=== PATIENT | male | born 1975 | race Caucasian/White ===

== ENCOUNTER 2021-03-29 19:38 | Emergency (ER) | payer SELFPAY ==
[2021-03-29 19:39] VITALS: BP 144/92; PULSE 92; RESP 16; TEMP 36.8; O2SAT 96; BMI 20.2
--- NOTE | 2021-03-29 20:47 | EX.ED.SAOD ---
HPI History of Present Illness Chief Complaint: Mental Health Narrative Narrative: Patient presenting for hallucinations. States that he sees and hears things when he has high on methamphetamine. He states he is on methamphetamine for a long time. He admits to snorting and injecting this. He also admits to some Percocet use as well periodically. He smokes a lot of marijuana. Patient states that lays on methamphetamine he does not have hallucination problems however he does feel as if he sometimes is suicidal. He admits to in the past holding a gun to his head although this was distantly. Last night he stated he wanted to jump in front of a car. He has no current plan to hurt himself. He is requesting help. Patient does admit to doing methamphetamine prior to arrival [facility] Medical History Depression Substance abuse Home Medications No Known/Unobtainable [No Known Home Medications] 11/27/13 [History Last Taken Unknown] Allergy/AdvReac Type Severity Reaction Status Date / Time hydrocodone AdvReac Hives Verified 03/29/21 19:44 Social History Smoking Status: Current every day smoker tobacco type: cigarettes ROS ROS ED Constitutional Constitutional ED: Denies chills or fever(s) Eyes Eyes: Denies blurry vision or diplopia ENT ENT ED: Denies rhinorrhea or sore throat Cardiovascular Cardiovascular: Denies chest pain or palpitations Respiratory/Chest Respiratory/Chest: Denies cough or dyspnea Gastrointestinal Gastrointestinal: Denies abdominal pain, nausea or vomiting Genitourinary Genitourinary ED: Denies dysuria or urinary frequency Musculoskeletal Musculoskeletal: Denies arthralgias or myalgias Integumentary Denies Abrasions or rash Neurologic Neurologic: Denies headache(s) or paresthesias Psychiatric Psychiatric: Reports depression, suicidal ideation and suicidal thoughts EXAM Physical Exam Const Vital Signs: 03/29/21 19:39 Temperature 98.3 F Temperature Source Temporal Pulse Rate 92 Respiratory Rate 16 Blood Pressure 144/92 H Blood Pressure Mean 109 Pulse Ox 96 Oxygen Delivery Method Room Air Positive well nourished General Appearance ED: NAD HEENT Reports moist mucous membranes atraumatic Eyes PERRL and EOMs intact bilaterally General Eye ED: Negative for pale conjunctiva or scleral icterus Chest Wall inspection of chest normal and palpation of chest normal Resp normal respiratory effort and clear to auscultation bilaterally Cardio regular rate and regular rhythm Neuro oriented x3 and CN's II-XII intact bilaterally Sensorium / Orientation: alert Skin Lesions: no lesions Rashes: no rashes MDM MDM MDM Narrative Medical decision making narrative: Patient presenting with methamphetamine use as well as suicidal ideation. He does state that he previously held a gun to his head distantly and also states that last night he tried to jump out in front of a car. Given the fact that he has a plan I did think he needed to be pink slipped. I did obtain lab work which is all within normal limits. EtOH is negative. Urine drug screen is pending. Crisis did come evaluate the patient and they think he will need to be admitted given his symptoms. He is somewhat amenable to this and feels like he needs help. Patient was pink slipped.. Patient will be admitted when a bed becomes available. Impression: 1. Suicidal ideation 2. History of methamphetamine Lab Data Labs: Laboratory Results - last 24 hr 03/29/21 03/29/21 03/29/21 21:15 21:15 21:15 WBC 8.1 RBC 5.17 Hgb 14.9 Hct 46.6 MCV 90.1 MCH 28.8 MCHC 32.0 RDW Std Deviation 42.7 RDW Coeff of Suzan 12.9 Plt Count 302 MPV 10.1 Immature Gran % (Auto) 0.200 Neut % (Auto) 56.9 Lymph % (Auto) 31.0 Barron % (Auto) 9.1 Eos % (Auto) 2.3 Baso % (Auto) 0.5 Absolute Neuts (auto) 4.6 Absolute Lymphs (auto) 2.51 Nucleated RBC % 0 Sodium 139 Potassium 3.4 L Chloride 104 Carbon Dioxide 32.0 Anion Gap 3 L BUN 20 H Creatinine 0.99 Estim Creat Clear Calc 77.41 Est GFR (MDRD) Af Amer 104 Est GFR (MDRD) Non-Af 86 BUN/Creatinine Ratio 20.1 H Glucose 88 Calcium 9.2 Total Creatine Kinase Ur Drug Screen Comment Ethyl Alcohol < 3.0 03/29/21 03/29/21 21:15 22:35 WBC RBC Hgb Hct MCV MCH MCHC RDW Std Deviation RDW Coeff of Suzan Plt Count MPV Immature Gran % (Auto) Neut % (Auto) Lymph % (Auto) Barron % (Auto) Eos % (Auto) Baso % (Auto) Absolute Neuts (auto) Absolute Lymphs (auto) Nucleated RBC % Sodium Potassium Chloride Carbon Dioxide Anion Gap BUN Creatinine Estim Creat Clear Calc Est GFR (MDRD) Af Amer Est GFR (MDRD) Non-Af BUN/Creatinine Ratio Glucose Calcium Total Creatine Kinase 149 Ur Drug Screen Comment Ethyl Alcohol Discharge Plan Triage Chief Complaint: Mental Health ED Provider: Domingo Belcher Dx/Rx/DC Orders Prescriptions: No Action No Known Home Medications RF: 0 Primary Care Provider: Care Physician,No Primary
--- NOTE | 2021-03-29 21:23 | ED.RN ---
PT INITIALLY NOT WILLING TO CHANGE OR HAVE BLOOD DRAWN. PT VOICES DESIRE TO RETURN HOME. LUPE CASE MANAGEMENT IN ROOM. DECISION TO PINK SLIP PT. SITTER NOW AT BEDSIDE. PT COOPERATIVE AT THIS TIME. THIS RN ABLE TO REASON WITH PT. PT PROVIDED WITH DRINK.
[2021-03-29 21:26] LABS: Absolute Lymphocyte Count 2.51 X10^3/uL (0.83-4.51); Absolute Neutrophil Count 4.6 X10^3/uL (2.0-7.7); Basophil# 0.04 X10^3/uL; Basophil% 0.5 % (0-1); Eosinophil# 0.19 X10^3/uL; Eosinophils% 2.3 % (0-5); Hematocrit 46.6 % (40-54); Hemoglobin 14.9 g/dL (13.0-16.5); Lymphocyte # 2.51 X10^3/ul (0.83-4.51); Mean Corpuscular Hgb 28.8 pg (27.0-32.0); Mean Corpuscular Volume 90.1 fL (80-94); Mean Platelet Vol. 10.1 fl (6.2-12.0); Monocyte# 0.74 X10^3/uL; Monocyte% 9.1 % (0-10); NRBC Flagged by Analyzer 0 % (0-5); Neutrophil # 4.59 X10^3/uL (2.7-7.7); Neutrophil % 56.9 % (47-70); Platelet Count 302 K/mm3 (150-450); RBC Distribution Width CV 12.9 % (11.6-14.6); RBC Distribution Width SD 42.7 fl (35.1-43.9); Red Blood Count 5.17 M/mm3 (4.6-6.2); White Blood Count 8.1 K/mm3 (4.4-11.0)
[2021-03-29 21:42] LABS: Anion Gap 3 (5-15); BUN 20 mg/dL (7-18); BUN/Creat Ratio 20.1 RATIO (10-20); Calcium,Total 9.2 mg/dL (8.5-10.1); Chloride 104 mmol/L (98-107); Creatinine, Serum 0.99 mg/dL (0.70-1.30); EST Glomerular Filtration Rate 86 mL/min (>60); Est Glom Filt Rate - Afr Amer 104 mL/min (>60); Estimated Creatinine Clearance 77.41 ml/min; Glucose 88 mg/dL (74-106); Potassium 3.4 mmol/L (3.5-5.1); Sodium Level 139 mmol/L (136-145)
[2021-03-29 21:46] LABS: Alcohol, Blood (Medical)-Serum < 3.0 mg/dL
[2021-03-29 21:54] LABS: CPK Total, Creatine Kinase 149 U/L (39-308)
[2021-03-29 23:00] VITALS: RESP 16
[2021-03-29 23:00] LABS: Amphetamine Urine VISTA POSITIVE (<1000 ng/mL); Barbiturate Urine VISTA NEGATIVE (< 200 ng/mL); Benzodiazepine Urine VISTA NEGATIVE (< 200 ng/mL); Cocaine Urine VISTA NEGATIVE (< 300 ng/mL); Ecstacy Urine VISTA NEGATIVE (< 500 ng/mL); Methadone Urine VISTA NEGATIVE (< 300 ng/mL); PCP Urine VISTA NEGATIVE (< 25 ng/mL); THC Urine VISTA POSITIVE (< 50 ng/mL); Vista UDS pH Range 6
[2021-03-30] VITALS (9 sets, daily range): BP systolic 123–144; BP diastolic 77–104; PULSE 71–87; RESP 14–18; O2SAT 97–98
--- NOTE | 2021-03-30 08:01 | ED.RN ---
PTS CALLED CHECKING ON PT. PT WAS ASKED IF HE WAS OK WITH US GIVING HER INFORMATION. PT SAID NO. WAS TOLD THAT HE IS HERE AND HE DID NOT WANT US GIVING HER ANY INFORMATION AT THIS TIME. SHE SEEMED SURPRISED BY THIS STATEMENT. PTS GIRLFRIEND IS IN THE ROOM WITH PT. ASKED HOW LONG HE WAS GOING TO BE HERE AND SHE WAS TOLD THAT WE DID NOT KNOW AT THIS TIME. SHE WANTED TO COME VISIT PT AND WAS TOLD NOT AT THIS TIME. IS AWARE PT HAS HIS CELLPHONE AND SHE CAN CALL HIM. PT IS AWARE WHAT I TOLD THE AND PT AND GIRLFRIEND WERE TOLD THAT WE CANT BE HAVING DOMESTIC ISSUES GOING ON.
--- NOTE | 2021-03-30 08:50 | ED.RN ---
[facility] PT IS PENDING AT [facility]
--- NOTE | 2021-03-30 09:20 | ED.RN ---
PTS ARRIVED AND WANTED US TO KICK THE GIRLFRIEND OUT. PT WAS ASKED IF HE WANTED GIRLFRIEND OR BACK HERE. PT STATED THAT COULD COME BACK IF SHE WAS OK WITH GIRLFRIEND BEING HERE. WAS NOT OK WITH IT AND WANTED GIRLFRIEND TO LEAVE. PT STATED THAT SHE COULDNT COME BACK THEN. WAS ADVISED OF THIS AND SHE LEFT. WAS IN THE PARKING LOT TAKING PICTURES OF GIRLFRIENDS CAR. OFFICER ALICE WAS AT THE ER ENTRANCE WATCHING TO MAKE SURE NOTHING HAPPENED TO GIRLFRIENDS CAR
--- NOTE | 2021-03-30 10:50 | ED.RN ---
ATTEMPTED TO CALL REPORT TWICE, WAS PUT ON HOLD FOR A NURSE AND WAITED 8 MIN THE FIRST TIME AND CALLED BACK. SECOND TIME I WAITED 19 MIN AND TEN HUNG UP. WHEN TRIED TO CALL THE 3RD TIME IT JUST RANG.
--- NOTE | 2021-03-30 10:55 | ED.RN ---
PT TRANSFERED TO [facility]. GIRLFRIEND IS AWARE. IS NOT TO BE GIVEN ANY INFORMATION PER PT
--- NOTE | 2021-03-30 12:37 | CM.ED ---
JESUS note: Late Entry: JESUS [facility] She said that at [facility] is continuing to review patient's information. Plan: Inpatient psych Marline CALDERON
== END 2021-03-30 10:55 ==
LOC: ED 21:49
PROVIDERS: Emergency Provider Student in an Organized Health Care Education/Training Program
DX: R45.851 Suicidal ideations (principal); F15.90 Other stimulant use, unspecified, uncomplicated; F17.210 Nicotine dependence, cigarettes, uncomplicated
CPT/HCPCS: 80048; 80307; 82077; 82550; 85025; 87426; 99285